=== PATIENT | female | born 1955 | race Caucasian/White ===

== ENCOUNTER 2023-07-27 13:18 | Emergency (ER) | payer BC, SELFPAY ==
[2023-07-27 13:32] VITALS: BP 161/81; PULSE 81; RESP 18; TEMP 36.8; O2SAT 98; BMI 36.3
--- NOTE | 2023-07-27 14:26 | CRLHL7_ITS ---
For Patients: As a result of the Century Cures Act, medical imaging exams and procedure reports are released immediately into your electronic medical record. You may view this report before your referring provider. If you have questions, please contact your health care provider. Indication: Cough Comparison: None available. Technique: PA and lateral views of the chest Findings: There is no focal consolidation, effusion, or pneumothorax. The cardiomediastinal silhouette is within normal limits. The bony thorax is grossly intact. Impression: No acute cardiopulmonary abnormality. Dictated by Kvng Morgan MD @ 07/27/2023 3:16:40 PM (Electronically Signed)
--- NOTE | 2023-07-27 15:29 | ED_ITS ---
HPI - General Adult General Date Seen: 07/27/23 Chief complaint: Shortness of Breath/Dyspnea Stated complaint: Pulmonary congestion Time Seen by Provider: 07/27/23 14:15 Source: patient Mode of arrival: ambulatory Limitations: no limitations History of Present Illness HPI narrative: Patient is a 68-year-old woman with a history of asthma who has been feeling sick for a few days with some upper respiratory symptoms and then felt like her breathing was getting more difficult over the past couple of days. She has not had fevers or chest pain. No swelling in her legs, no orthopnea or PND. She went to urgent care in [place] today where she had a neb and felt considerably better, she has no symptoms right now. They gave her an inhaler and prednisone, but they also did chest x-ray to check for pneumonia. They called her after she had left and said that the chest x-ray had been read showing ?mild congestive heart failure and that she needed to go to an ER right away. She and her both say they did not quite understand why she needed to be seen right away given that she is feeling fine but they wanted to follow directions so they came in. Her general health is good, she does have high blood pressure but no cardiac history. She does not smoke or drink. Related Data Home Medications Medication Instructions Recorded Confirmed fluticasone propionate 250 inhalation 07/27/23 mcg/actuation blister powder for inhalation (Flovent Diskus) levalbuterol tartrate 45 inhalation 07/27/23 mcg/actuation aerosol inhaler lisinopril 10 1 tab PO DAILY 07/27/23 07/27/23 mg-hydrochlorothiazide 12.5 mg tablet montelukast 10 mg tablet 10 mg PO QPM 07/27/23 07/27/23 prednisone 20 mg tablet 20 mg PO BID 07/27/23 07/27/23 Allergies Allergy/AdvReac Type Severity Reaction Status Date / Time No Known Drug Allergies Allergy Verified 07/27/23 13:36 Review of Systems Status of ROS: Reports: 10 or more systems reviewed and unremarkable except as noted in History and below Exam Narrative: Exam Narrative: Vital signs as noted above. In general, an alert, well-appearing patient. Head: Normocephalic, atraumatic. Eyes: Pupils are equal reactive. Extraocular movements are full. Conjunctivae are normal. ENT: Mucous membranes are moist. Neck: Supple without lymphadenopathy. Heart: Regular rate and rhythm. No murmur or rub. Lungs: Clear bilaterally. No increased work of breathing, crackles or wheezes. Abdomen: Soft and nontender. Extremities: Well perfused. No edema. No calf tenderness. Pulses intact. Neurologic: Patient is alert and oriented to person and place. Speech is fluent. Face is symmetric. Moves all extremities equally. Affect: Normal. Skin: Warm and dry. Well perfused. Const: Vital Signs, click to edit/add: Vital Signs - 24 hr 07/27/23 13:32 Temperature 98.3 F Pulse Rate [Right Pulse Oximeter] 81 Respiratory Rate 18 Blood Pressure [Ri ght Upper Arm] 161/81 H Pulse Oximetry 98 Oxygen Delivery Me thod Room Air Documenting provider has reviewed patient's vital signs: yes Course Course ED Course: Given that the patient's symptoms responded briskly to an albuterol neb at Urgent Care, she does not have any historical symptoms suggestive of congestive heart failure, does not have any past history which would put her at higher risk for congestive heart failure and has clear lungs and normal O2 sats, I suggested that we start by repeating the chest x-ray to see if it actually shows conges tive heart failure. She was agreeable to that, had a chest x-ray which by my review is negative, radiology reads it is negative. I do not think there is anything here to say that we need to do an entire workup looking for congestive heart failure. She appears to have some bronchospasm related to recent illness which responded well to albuterol, she was given prednisone as well. I have recommended that she take those medications in if after that course of treatment she does not feel improved it would be reasonable to recheck. If at any time she has acute shortness of breath, chest pain, develops swelling in her legs etcetera, return for re-evaluation. She and her are very happy with that plan. Vital Signs Vital signs: Initial Vital Signs Temperature 98.3 F 07/27/23 13:32 Temperature Source Temporal Artery Scan 07/27/23 13:32 Pulse Rate 81 07/27/23 13:32 Respiratory Rate 18 07/27/23 13:32 Blood Pressure 161/81 H 07/27/23 13:32 Blood Pressure Mean 107 H 07/27/23 13:32 Blood Pressure Position Sitting 07/27/23 13:32 Pulse Oximetry 98 07/27/23 13:32 Oxygen Delivery Method Room Air 07/27/23 13:32 Vital Signs Temperature 98.3 F 07/27/23 13:32 Pulse Rate 81 07/27/23 13:32 Respiratory Rate 18 07/27/23 13:32 Blood Pressure 161/81 H 07/27/23 13:32 Pulse Oximetry 98 07/27/23 13:32 Oxygen Delivery Method Room Air 07/27/23 13:32 Temperature 98.3 F 07/27/23 13:32 Pulse Rate 81 07/27/23 13:32 Respiratory Rate 18 07/27/23 13:32 Blood Pressure 161/81 H 07/27/23 13:32 Pulse Oximetry 98 07/27/23 13:32 Oxygen Delivery Method Room Air 07/27/23 13:32 Discharge Plan Discharge Clinical Impression: Asthma Patient Disposition: Home, Self-Care Condition: Stable Instructions: Asthma (DC) Additional Instructions: Take your medications as prescribed by urgent care. If you are not feeling improved upon completion, follow-up with primary care. If at any time you feel acutely short of breath, developed chest pain, leg swelling or other significant changes, return to the emergency department. Chest x-ray here read by Radiology as normal. Prescriptions: No Action prednisone 20 mg tablet 20 mg PO BID montelukast 10 mg tablet 10 mg PO QPM lisinopril-hydrochlorothiazide 10-12.5 mg tablet 1 tab PO DAILY Flovent Diskus 250 mcg/actuation blister with device inhalation levalbuterol tartrate 45 mcg/actuation HFA aerosol inhaler inhalation Follow Up/Referrals: Shaina Sparrow MD [Primary Care Provider] - Stand Alone Forms: [facility] Info Instructions
== END 2023-07-27 15:48 | disposition home or self-care (01) ==
PROVIDERS: Emergency Provider Emergency Medicine; PCP Family Medicine
DX: J45.909 Unspecified asthma, uncomplicated (principal)
CPT/HCPCS: 71046; 99283; 99284